=== PATIENT | male | born 1935 | race Caucasian/White ===

== ENCOUNTER 2017-03-15 07:29 | Observation (INO) | payer MEDICARE, MEDICAID ==
[2017-03-15 08:18] LABS: Troponin I 0.047 ng/mL (< 0.028)
--- NOTE | 2017-03-15 08:42 | RAD ---
PORTABLE CHEST: Date: 03/15/17 COMPARISON: Earlier exam from same date. HISTORY: Chest pain, elevated troponin. FINDINGS: Heart size is slightly enlarged with postop sternotomy change. Lungs are clear of infiltrates. No sig ns of failure. IMPRESSION: Borderline heart size. POS: [facility]
[2017-03-15 11:04] LABS: Anion Gap 11 mmol/L (10-20); BUN (Urea Nitrogen) 15 mg/dL (8.4-25.7); CK (CPK) 58 U/L (30-200); Calc. Creatinine Clearance 0 mL/min (70-130); Calcium 8.8 mg/dL (7.8-10.44); Carbon Dioxide 23 mmol/L (23-31); Chloride 99 mmol/L (98-107); Estimated GFR-MDRD 58; Glucose 132 mg/dL (83-110); Magnesium 1.7 mg/dL (1.6-2.6); Phosphorus 3.1 mg/dL (2.3-4.7); Potassium 3.7 mmol/L (3.5-5.1); Sodium 129 mmol/L (136-145)
[2017-03-15 11:08] LABS: CKMB 2.2 ng/mL (0-6.6)
[2017-03-15 11:24] LABS: Troponin I 0.026 ng/mL (< 0.028)
[2017-03-15 11:43] LABS: Folate (Folic Acid) 10.9 ng/mL (7.0-31.4)
[2017-03-15 14:12] VITALS: BMI 29.9
[2017-03-15] MEDS ORDERED: Nitroglycerin 0.4 MG TAB (25 Tab Bottle) SL PRN (14:31)
[2017-03-15] MEDS ORDERED: Mag-Al 1200 mg/1200 mg/30 ML UDCUP PO PRN (14:31)
[2017-03-15] MEDS ORDERED: Artificial Tears 18 DROP/0.9 ML EA EYE PRN (14:31)
[2017-03-15] MEDS ORDERED: Senokot 8.6 MG TAB PO PRN (14:31)
[2017-03-15] MEDS ORDERED: Acetaminophen 325 MG TAB PO PRN (14:31)
[2017-03-15] MEDS ORDERED: Sodium Chloride 0.65% Nasal 44 ML BOT EA NARE PRN (14:31)
[2017-03-15] MEDS ORDERED: Loratadine 10 MG TAB PO PRN (14:31)
[2017-03-15] MEDS ORDERED: Loperamide HCl 2 MG CAP PO PRN (14:31)
[2017-03-15] MEDS ORDERED: hydrALAZINE 20 MG/ML VIAL SLOW IVP PRN (14:31)
[2017-03-15] MEDS ORDERED: Eucerin (Mineral Oil/Petrolatum,White) 30 gm Jar TOP PRN (14:31)
[2017-03-15] MEDS ORDERED: Ondansetron ODT 4 MG TAB PO PRN (14:31)
[2017-03-15] MEDS ORDERED: Chloraseptic Spray 180 ml Bottle PO PRN (14:31)
[2017-03-15] MEDS ORDERED: Diabetic Tussin 200 MG/10 ML UDCUP PO PRN (14:31)
[2017-03-15] MEDS ORDERED: Milk Of Magnesia 30 ML UDCUP PO PRN (14:31)
[2017-03-15] MEDS ORDERED: Ondansetron HCl/PF 4 MG/2 ML Vial IVP PRN (14:31)
[2017-03-15] MEDS ORDERED: FLU VACC TS2017-18 (>65YR) 0.5 ML SYRINGE IM ONE (14:45)
[2017-03-15 15:02] LABS: INR-International Normal Ratio 1.9
--- NOTE | 2017-03-15 15:58 | HP ---
PRIMARY CARE PHYSICIAN: Mert Livingston M.D. REASON FOR ADMISSION: Transfer from [facility] for evaluation of the elevated troponin an d mechanical fall. HISTORY OF PRESENT ILLNESS: An 81-year-old male with a history of coronary artery disease, CABG, aor tic valve replacement on chronic anticoagulation therapy, who lives at [facility]. From there, he was taken to [facility], this patient is not able to provide any good history, but at [facility], the patient was fully evaluated and he had in determinate troponin and that is why the patient was sent to our emergency room for further evaluatio n. Patient had a mechanical fall from bed. Patient did not have any injury. He was feeling weak and na usea. At the halfway, he is using only wheelchair and he is able to go to bathroom with assista nce, but patient felt weak and that is why he was not able to go. Further details are not available. Patient did not have any injury associated with fall. REVIEW OF SYSTEMS: The following complete review of systems was negative, unless otherwise mentioned in the HPI or below: Constitutional: Weight loss or gain, ability to conduct usual activities. Sk in: Rash, itching. Eyes: Double vision, pain. ENT/Mouth: Nose bleeding, neck stiffness, pain, te nderness. Cardiovascular: Palpitations, dyspnea on exertion, orthopnea. Respiratory: Shortness of breath, wheezing, cough, hemoptysis, fever or night sweats. Gastrointestinal: Poor appetite, abdom inal pain, heartburn, nausea, vomiting, constipation, or diarrhea. Genitourinary: Urgency, frequency , dysuria, nocturia. Musculoskeletal: Pain, swelling. Neurologic/Psychiatric: Anxiety, depression . Allergy/Immunologic: Skin rash, bleeding tendency. Please see my HPI for pertinent positive and negative. All other review of systems reviewed and negative except as mentioned in the HPI. ALLERGIES: CODEINE, MORPHINE, PENICILLIN, TETANUS TOXOID. CURRENT HOME MEDICATIONS: Aspirin 81 mg p.o. daily, clonidine transdermal weekly, Keppra 500 mg twic e daily, pyridoxine 100 mg p.o. daily, losartan 100 mg twice daily, Coreg 3.125 mg twice daily, Floma x 0.4 mg daily, Cymbalta 30 mg daily, chlorthalidone 25 mg p.o. daily, Ranexa 1000 mg twice daily, Mi raLax 17 gram daily, Fosamax weekly, Coumadin 2.5 mg p.o. daily, Tylenol 650 mg q.6 hourly p.r.n., Ex dmitri patch daily. PAST MEDICAL HISTORY: History of myocardial infarction, coronary artery disease, history of prosthet ic valve replacement, chronic constipation, hypertension, osteoporosis, Alzheimer's dementia, epileps y, history of CVA, chronic diastolic heart failure, Paget's disease. PAST SURGICAL HISTORY: Appendicectomy, cholecystectomy. PAST PSYCHIATRIC HISTORY: Anxiety and depression. SOCIAL HISTORY: Patient lives at [facility] and [facility]. No history of tobacco, a lcohol or illicit drug abuse. He is mostly wheelchair bound, but able to ambulate short distances wi th assistance. FAMILY HISTORY: No strong family history of premature coronary artery disease, stroke or cancer. EMERGENCY ROOM COURSE: Patient is given nitro patch, aspirin at other emergency room. PHYSICAL EXAMINATION: VITAL SIGNS: On arrival to our emergency room, blood pressure 117/72, pulse 74, respiratory rate 18, temperature 98.4, saturation 93% on room air, weight 90.7 kilograms. GENERAL: Patient is currently alert, awake, follows commands. Demented pleasantly. No acute distre ss. HEAD: Normocephalic, atraumatic. No bruits noted on the scalp examination. EYES: Pupils round, reactive to light. Extraocular muscles intact. ENT: Oropharynx within normal limits. Moist mucous membranes. No oral lesions. No pharyngeal eryt tabby, exudate. NECK: Supple, no JVD, no thyromegaly, no carotid bruit, no jugular venous distention. LUNGS: Clear to auscultation without any rhonchi or rales. CARDIAC: S1, S2 regular prosthetic sounds heard. No murmur, no gallop, no rub. ABDOMEN: Soft, obesity present. Bowel sounds present. Nontender, nondistended. No organomegaly, n o mass, no suprapubic tenderness. BACK: Unremarkable, no CVA tenderness. EXTREMITIES: Upper extremity passive movement of all joints is normal. Lower extremities: No edema . Good peripheral pulsation. SKIN: No skin rash. HEMATOLOGICAL: No lymphadenopathy. PSYCHIATRIC: Normal affect. NEUROLOGIC: Patient is alert and awake, follows commands. Speech normal. Motor and sensation withi n normal limits. Reflexes symmetrical. Plantar bilateral flexor. No focal neurological deficit not ed. IMAGING: EKG based on my review reveals normal sinus rhythm, first degree AV block and nonspecific S T-T changes in lateral leads. Chest x-ray based on my review, no acute cardiopulmonary process. CT cervical spine negative for any fracture or dislocation. CT brain negative for any acute intracrania l process. SIGNIFICANT LABORATORY DATA: CBC: WBC 6.0, hemoglobin 12.6, platelets 139. INR 1.8. BMP: Sodium 129, potassium 3.7, chloride 99, carbon dioxide 23, BUN 15, creatinine 1.21, glucose 132, calcium 8.8 , phosphorus 3.1, magnesium 1.7, AST 13, ALT 9, alkaline phosphatase 96, albumin 3.6, CK-MB 2.1. CK 61, troponin I 0.032 and then 0.047 and then 0.026. BNP 143.2. Urinalysis: Leukocyte esterase trac e. B12 358. Folate 10.97. TSH 2.20. ASSESSMENT AND PLAN: 1. Mechanical fall. The patient's CT brain and CT cervical spine is negative. Clinical examination , patient does not have any bruits or any signs of injury. Etiology of mechanical fall is uncertain. 2. Elevated troponin. We will obtain echocardiography. The patient's two troponin is abnormal and third troponin came back negative, rule out acute coronary syndrome. We will obtain echocardiography . We will check lipid profile tomorrow morning for risk stratification. We will continue with aspir in 81 mg p.o. daily, Coreg 3.125 mg p.o. b.i.d., Ranexa 1000 mg twice daily, most likely elevated tro ponin related to demand ischemia. This patient does not complain of any chest pain. We will repeat cardiac enzyme again in the morning and then decide the next step. We will keep him n.p.o. after mid night; if needed, we will perform Cardiolite stress test for diagnostic reason. 3. History of mechanical valve replacement. We will obtain echocardiography to assess mechanical va lve. We will continue chronic anticoagulation with warfarin and will check PT/INR tomorrow. 4. Hypertension. We will continue clonidine patch weekly along with losartan 100 mg twice daily, Co reg 3.125 mg twice daily. 5. Hyponatremia, likely related with chlorthalidone, diuretic therapy. We will hold on that medicat ion. 6. Benign enlargement of prostate. We will continue Flomax 0.4 mg p.o. daily. 7. Alzheimer dementia. We will continue Exelon patch every day. 8. Seizure disorder. We will continue Keppra 500 mg twice daily. 9. Anxiety and depression. We will continue Cymbalta 30 mg p.o. daily. 10. Osteoporosis. The patient will resume Fosamax after discharge. 11. Asymptomatic urinary tract infection. We will start Macrobid 100 mg twice daily. 12. Chronic anticoagulation. Continue warfarin therapy and monitor PT and INR. 13. Deep venous thrombosis prophylaxis not needed because we are expecting discharge in 24 hours and patient is already on warfarin therapy. 14. Gastrointestinal prophylaxis. Pepcid 20 mg p.o. b.i.d. 15. Code status: The patient has out of hospital DO NOT RESUSCITATE as well as patient is DO NOT RE SUSCITATE; that is confirmed. 16. Generalized weakness. The patient will need physical therapy and occupational therapy while in hospital, but patient is mostly wheelchair bound. Disposition plan based on clinical course likely within 24 hours. Plan of care discussed with the anna jj in detail.
[2017-03-15] MEDS: Warfarin Sodium 2.5 MG TAB PO SCH (16:12)
[2017-03-15] MEDS: Carvedilol 3.125 MG TAB PO SCH (16:12)
[2017-03-15 19:02] LABS: Hemoglobin 12.9 g/dL (14.0-18.0); Platelet Count 171 thou/uL (130-400)
[2017-03-15 19:07] LABS: INR-International Normal Ratio 1.8; Prothrombin Time 21.2 SEC (12.0-14.7)
[2017-03-15] MEDS: Famotidine 20 MG TAB PO SCH (20:41)
[2017-03-15] MEDS: levETIRAcetam 500 MG TAB PO SCH (20:41)
[2017-03-15] MEDS: Nitrofurantoin Monohyd/M-Cryst 100 MG CAP PO SCH (20:41)
[2017-03-16 06:07] LABS: Prothrombin Time 23.3 SEC (12.0-14.7)
[2017-03-16 06:11] LABS: Anion Gap 9 mmol/L (10-20); BUN (Urea Nitrogen) 14 mg/dL (8.4-25.7); Calc. Creatinine Clearance 62 mL/min (70-130); Calcium 8.7 mg/dL (7.8-10.44); Carbon Dioxide 28 mmol/L (23-31); Cardiac Risk 4.1 (Less than 4.5); Chloride 95 mmol/L (98-107); Cholesterol 176 mg/dl (< 200 Desired); Estimated GFR-MDRD 62; Glucose 101 mg/dL (83-110); HDL Cholesterol 43 mg/dL (>60 Neg Risk); LDL Cholesterol, Calculated 114 mg/dL; Potassium 3.2 mmol/L (3.5-5.1); Sodium 129 mmol/L (136-145); Triglycerides 94 mg/dL (Less than 150)
[2017-03-16 06:12] LABS: CKMB 2.7 ng/mL (0-6.6); Troponin I 0.032 ng/mL (< 0.028)
[2017-03-16 08:01] LABS: #Basophils 0.1 thou/uL (0.0-0.2); #Eosinphils 0.1 thou/uL (0.0-0.7); #Lymphocytes 1.5 thou/uL (1.20-3.40); #Neutrophils 4.5 thou/uL (1.40-6.50); %Basophils 0.8 % (0.0-1.0); %Eosinophils 0.9 % (0.0-10.0); %Lymphocytes 20.9 % (21.0-51.0); %Monocytes 14.2 % (0.0-10.0); %Neutrophils 63.1 % (42.0-75.0); Hemoglobin 12.1 g/dL (14.0-18.0); MDiff Complete? YES; Mean Corpuscular HGB CONC 34.2 g/dL (32.0-36.0); Mean Corpuscular Hemoglobin 27.1 pg (27.0-31.0); Mean Corpuscular Volume 79.3 fl (80.0-94.0); Mean Platelet Volume 6.7 fL (7.4-10.4); Ovalocytes SLIGHT = 2-5 cells (100X) (0-1/hpf); Platelet Count 148 thou/uL (130-400); Red Blood Cell (RBC) Count 4.47 mill/uL (4.70-6.10); Schistocytes SLIGHT = 2-5 cells (100X) (0-1/hpf); White Blood Cell (WBC) Count 7.1 thou/uL (4.8-10.8)
[2017-03-16] MEDS: Carvedilol 3.125 MG TAB PO SCH ×2 (08:25→16:43)
[2017-03-16] MEDS: DULoxetine 30 MG CAP PO SCH (09:26)
[2017-03-16] MEDS: Losartan 25 MG TAB PO SCH (09:26)
[2017-03-16] MEDS: Famotidine 20 MG TAB PO SCH ×2 (09:26→22:12)
[2017-03-16] MEDS: Tamsulosin HCl 0.4 MG CAP PO SCH (09:26)
[2017-03-16] MEDS: Nitrofurantoin Monohyd/M-Cryst 100 MG CAP PO SCH ×2 (09:27→22:12)
[2017-03-16] MEDS: pyridOXINE 50 MG (B6) TAB PO SCH (09:27)
[2017-03-16] MEDS: Rivastigmine 9.5mg/24 Hour PATCH TD SCH (09:27)
[2017-03-16] MEDS: levETIRAcetam 500 MG TAB PO SCH ×2 (09:27→22:12)
[2017-03-16] MEDS: Polyethylene Glycol 3350 17 GM Packet PO SCH ×2 (09:28→09:33)
--- NOTE | 2017-03-16 11:02 | PDOC.PN ---
- Subjective Encounter Start Date: 03/16/17 Encounter Start Time: 07:15 Patient seen and examined. No new complaints. No overnight events - Objective Resuscitation Status: Resuscitation Status DNR:Do Not Resuscitate MAR Reviewed: Yes Vital Signs & Weight: Vital Signs (12 hours) Temp Pulse Resp BP BP Pulse Ox 03/16/17 08:25 97.6 F 64 18 147/71 H 96 03/16/17 04:00 98.3 F 64 20 152/65 H 92 L 03/16/17 00:00 98.4 F 60 20 153/70 H 96 Weight Weight 185 lb 8 oz I&O: 03/15/17 03/16/17 03/17/17 06:59 06:59 06:59 Intake Total 1080 Output Total 1000 Balance 80 Result Diagrams: 03/16/17 05:17 03/16/17 05:17 Phys Exam - Physical Examination Constitutional: NAD HEENT: PERRLA, moist MMs, sclera anicteric Neck: no JVD, supple Respiratory: no wheezing, no rales, no rhonchi Cardiovascular: RRR, no significant murmur, no rub Gastrointestinal: soft, non-tender, no distention, positive bowel sounds Musculoskeletal: no edema, pulses present Neurological: non-focal Psychiatric: normal affect Skin: no rash, normal turgor Dx/Plan (1) Elevated troponin Code(s): R74.8 - ABNORMAL LEVELS OF OTHER SERUM ENZYMES Status: Acute (2) Fall at intermediate Code(s): W19.XXXA - UNSPECIFIED FALL, INITIAL ENCOUNTER; Y92.129 - UNSP PLACE IN LONGTERM PLACE Status: Acute (3) Hyponatremia Code(s): E87.1 - HYPO-OSMOLALITY AND HYPONATREMIA Status: Acute (4) UTI (urinary tract infection) Status: Acute (5) Weakness generalized Code(s): R53.1 - WEAKNESS Status: Acute (6) Alzheimer's dementia Code(s): G30.9 - ALZHEIMER'S DISEASE, UNSPECIFIED Status: Chronic (7) BPH (benign prostatic hyperplasia) Code(s): N40.0 - BENIGN PROSTATIC HYPERPLASIA WITHOUT LOWER URINRY TRACT SYMP Status: Chronic (8) Chronic anticoagulation Code(s): Z79.01 - HOME HEALTH TRAVEL PT (CURRENT) USE OF ANTICOAGULANTS Status: Chronic (9) H/O mechanical aortic valve replacement Code(s): Z95.2 - PRESENCE OF PROSTHETIC HEART VALVE Status: Chronic (10) Hypertension Code(s): I10 - ESSENTIAL (PRIMARY) HYPERTENSION Status: Chronic (11) Osteoporosis Code(s): M81.0 - AGE-RELATED OSTEOPOROSIS W/O CURRENT PATHOLOGICAL FRACTURE Status: Chronic (12) Seizure disorder Code(s): G40.909 - EPILEPSY, UNSP, NOT INTRACTABLE, WITHOUT STATUS EPILEPTICUS Status: Chronic - Plan cont current plan of care * medication reviewed as below * symptomatic treatment * see discharge summery * echo pending. Review of Systems - Review of Systems ENT: negative: Ear Pain, Ear Discharge, Nose Pain, Nose Discharge, Nose Congestion, Mouth Pain, Mouth Swelling, Throat Pain, Throat Swelling, Other Respiratory: negative: Cough, Dry, Shortness of Breath, Hemoptysis, SOB with Excertion, Pleuritic Pain, Sputum, Wheezing Cardiovascular: negative: chest pain, palpitations, orthopnea, paroxysmal nocturnal dyspnea, edema, light headedness, other Gastrointestinal: negative: Nausea, Vomiting, Abdominal Pain, Diarrhea, Constipation, Melena, Hematochezia, Other Genitourinary: negative: Dysuria, Frequency, Incontinence, Hematuria, Retention , Other Musculoskeletal: negative: Neck Pain, Shoulder Pain, Arm Pain, Back Pain, Hand Pain, Leg Pain, Foot Pain, Other Skin: negative: Rash, Lesions, Prince, Bruising, Other - Medications/Allergies Allergies/Adverse Reactions: Allergies Allergy/AdvReac Type Severity Reaction Status Date / Time codeine Allergy Verified 03/15/17 13:56 morphine Allergy Verified 03/15/17 13:56 Penicillins Allergy Verified 03/15/17 13:57 Tetanus Vaccines and Toxoid Allergy Verified 03/15/17 13:57 Medications: Current Medications Acetaminophen (Tylenol) 650 mg PO Q4H PRN PRN Reason: Headache/Fever or Pain Al Hydroxide/Mg Hydroxide (Maalox) 30 ml PO Q6H PRN PRN Reason: Heartburn or Indigestion Artificial Tears (Tears Naturale) 0 drop EA EYE PRN PRN PRN Reason: Dry Eyes Aspirin (Aspirin Chewable) 81 mg PO DAILY [facility] Last Admin: 03/16/17 09:26 Dose: 81 mg Carvedilol (Coreg) 3.125 mg PO BID-[facility] Last Admin: 03/16/17 08:25 Dose: 3.125 mg Duloxetine HCl (Cymbalta) 30 mg PO DAILY [facility] Last Admin: 03/16/17 09:26 Dose: 30 mg Famotidine (Pepcid) 20 mg PO BID [facility] Last Admin: 03/16/17 09:26 Dose: 20 mg Guaifenesin (Robitussin Sf) 200 mg PO Q4H PRN PRN Reason: Cough Hydralazine HCl (Apresoline) 10 mg SLOW IVP Q4H PRN PRN Reason: Systolic BP > 180 Levetiracetam (Keppra) 500 mg PO BID [facility] Last Admin: 03/16/17 09:27 Dose: 500 mg Loperamide HCl (Imodium) 2 mg PO PRN PRN PRN Reason: Diarrhea/Loose Stools Loratadine (Claritin) 10 mg PO DAILYPRN PRN PRN Reason: Sinus Symptoms Losartan Potassium (Cozaar) 100 mg PO DAILY [facility] Last Admin: 03/16/17 09:26 Dose: 100 mg Magnesium Hydroxide (Milk Of Magnesium) 30 ml PO DAILYPRN PRN PRN Reason: Constipation Mineral Oil/White Petrolatum (Eucerin Cream) 0 gm TOP BIDPRN PRN PRN Reason: Dry Skin Nitrofurantoin Macrocrystals (Macrobid) 100 mg PO BID [facility] Last Admin: 03/16/17 09:27 Dose: 100 mg Nitroglycerin (Nitrostat) 0.4 mg SL Q5MIN PRN PRN Reason: Chest Pain Ondansetron HCl (Zofran Odt) 4 mg PO Q6H PRN PRN Reason: Nausea/Vomiting Ondansetron HCl (Zofran) 4 mg IVP Q6H PRN PRN Reason: Nausea/Vomiting Phenol (Chloraseptic [place] 180 Ml Bot) 0 ml PO PRN PRN PRN Reason: Sore Throat Polyethylene Glycol (Miralax) 17 gm PO DAILY [facility] Last Admin: 03/16/17 09:33 Dose: Not Given Pyridoxine HCl (Vitamin B 6) 100 mg PO DAILY [facility] Last Admin: 03/16/17 09:27 Dose: 100 mg Ranolazine (Ranexa) 1,000 mg PO BID [facility] Last Admin: 03/16/17 09:27 Dose: 1,000 mg Rivastigmine (Exelon Patch) 9.5 mg TD DAILY [facility] Last Admin: 03/16/17 09:27 Dose: 9.5 mg Senna (Senokot) 2 tab PO HSPRN PRN PRN Reason: Constipation Sodium Chloride ([place] Nasal [place] 0.65%) 0 ml EA NARE QIDPRN PRN PRN Reason: Nasal Congestion Tamsulosin HCl (Flomax) 0.4 mg PO DAILY [facility] Last Admin: 03/16/17 09:26 Dose: 0.4 mg Warfarin Sodium (Coumadin) 2.5 mg PO 1700 [facility] Last Admin: 03/15/17 16:12 Dose: 2.5 mg
--- NOTE | 2017-03-16 11:47 | DIS ---
DATE OF ADMISSION: 03/15/2017 DATE OF DISCHARGE: 03/16/2017 PRIMARY CARE PHYSICIAN: Dr. Mert Livingston. DISCHARGE DISPOSITION: [facility]. PRIMARY DISCHARGE DIAGNOSES: 1. Fall at [facility]. 2. Elevated troponin, ruled out acute coronary syndrome. 3. Hyponatremia due to chlorthalidone. SECONDARY DISCHARGE DIAGNOSES: 1. History of mechanical aortic valve replacement. 2. Hypertension. 3. Benign enlargement of prostate. 4. Alzheimer's dementia. 5. Seizure disorder. 6. Osteoporosis. 7. Anxiety and depression. 8. Chronic anticoagulation. PRIMARY PROCEDURE/OPERATION: None. RADIOLOGICAL INVESTIGATION: Chest x-ray was normal. SIGNIFICANT LABORATORY DATA: WBC 7.1, hemoglobin 12.1, platelets 148, INR 2.0. Sodium 129, potassiu m 3.2, BUN 14, creatinine 1.13, calcium 8.7, LDL 114, CK-MB 2.2, troponin I 0.032. TSH 2.20. B12 35 8. Folate 10.9. DISCHARGE MEDICATIONS: Tylenol 650 mg p.o. q.6 hours p.r.n., Fosamax 10 mg p.o. daily, aspirin 81 mg p.o. daily, Coreg 3.125 mg p.o. b.i.d., chlorthalidone 25 mg p.o. daily, clonidine 0.1 mg p.o. b.i.d . p.r.n., Cymbalta 30 mg p.o. daily, Keppra 500 mg p.o. b.i.d., losartan 100 mg p.o. daily, MiraLax 1 7 grams p.o. daily p.r.n., pyridoxine 100 mg p.o. daily, Ranexa 1000 mg p.o. b.i.d., Exelon patch 9.5 mg topical daily, Flomax 0.4 mg p.o. daily, warfarin 2.5 mg p.o. daily. CONTRAINDICATIONS: None. CODE STATUS: DNR. INPATIENT CONSULTANTS: None. ALLERGIES: CODEINE, MORPHINE, PENICILLIN, TETANUS TOXOID. DISCHARGE PLAN: Post hospital, the patient will follow up with primary care physician. HOSPITAL COURSE: An 81-year-old male with above mentioned medical problems who was evaluated at the [facility]. Patient had a mechanical fall at [facility]. Subsequently, patient was cristino fordated at the [facility], his CT cervical spine and CT brain was negative. The patient dominguez d elevated troponin and that is why we observed him in the telemetry floor, patient did not have any chest pain. We continued his home medication while in hospital. The patient was having asymptomatic urinary tract infection and that is why he was given Macrobid while in hospital. The patient is als o given Macrobid for 5 days at [facility]. His sodium was low, which is related with diuretic ther apy. At this point, we are trying to obtain echocardiography. After echocardiography, this patient is medically stable for discharge. The patient is seen and examined at bedside today. Please see my progress note from today for furthe r details. Paper work for discharge done. Discharge medication reconciliation done.
[2017-03-16] MEDS: Warfarin Sodium 2.5 MG TAB PO SCH (16:44)
[2017-03-16 17:48] LABS: Prothrombin Time 23.6 SEC (12.0-14.7)
[2017-03-17 07:41] VITALS: BP 152/72; TEMP 98.1
[2017-03-17] MEDS: Famotidine 20 MG TAB PO SCH (09:12)
[2017-03-17] MEDS: Losartan 25 MG TAB PO SCH (09:12)
[2017-03-17] MEDS: DULoxetine 30 MG CAP PO SCH (09:13)
[2017-03-17] MEDS: pyridOXINE 50 MG (B6) TAB PO SCH (09:13)
[2017-03-17] MEDS: Nitrofurantoin Monohyd/M-Cryst 100 MG CAP PO SCH (09:13)
[2017-03-17] MEDS: Carvedilol 3.125 MG TAB PO SCH (09:13)
[2017-03-17] MEDS: levETIRAcetam 500 MG TAB PO SCH (09:13)
[2017-03-17] MEDS: Polyethylene Glycol 3350 17 GM Packet PO SCH (09:14)
[2017-03-17] MEDS: Tamsulosin HCl 0.4 MG CAP PO SCH (09:14)
[2017-03-17] MEDS: Rivastigmine 9.5mg/24 Hour PATCH TD SCH (09:14)
--- NOTE | 2017-03-17 10:47 | PDOC.PN ---
- Subjective Encounter Start Date: 03/17/17 Encounter Start Time: 07:00 Patient seen and examined. No new complaints. No overnight events - Objective Resuscitation Status: Resuscitation Status DNR:Do Not Resuscitate MAR Reviewed: Yes Vital Signs & Weight: Vital Signs (12 hours) Temp Pulse Resp BP BP Pulse Ox 03/17/17 07:45 98.1 F 69 17 03/17/17 07:40 98.1 F 69 17 152/72 H 98 03/17/17 04:00 97.9 F 64 18 117/60 96 Weight Weight 185 lb 8 oz I&O: 03/16/17 03/17/17 03/18/17 06:59 06:59 06:59 Intake Total 1080 1495 Output Total 1000 380 Balance 80 1115 Result Diagrams: 03/16/17 05:17 03/16/17 05:17 Radiology Reviewed by me: Yes (echo report) EKG Reviewed by me: Yes (nsr) Phys Exam - Physical Examination Constitutional: NAD HEENT: PERRLA, moist MMs, sclera anicteric Neck: no JVD, supple Respiratory: no wheezing, no rales, no rhonchi Cardiovascular: RRR, no significant murmur, no rub Gastrointestinal: soft, non-tender, no distention, positive bowel sounds Musculoskeletal: no edema, pulses present Neurological: non-focal Lymphatic: no nodes Psychiatric: normal affect Skin: no rash, normal turgor Dx/Plan (1) Elevated troponin Code(s): R74.8 - ABNORMAL LEVELS OF OTHER SERUM ENZYMES Status: Acute (2) [facility] Code(s): W19.XXXA - UNSPECIFIED FALL, INITIAL ENCOUNTER; Y92.129 - UNSP PLACE IN SKILLED NURSING PLACE Status: Acute (3) Hyponatremia Code(s): E87.1 - HYPO-OSMOLALITY AND HYPONATREMIA Status: Acute (4) UTI (urinary tract infection) Status: Acute (5) Weakness generalized Code(s): R53.1 - WEAKNESS Status: Acute (6) Alzheimer's dementia Code(s): G30.9 - ALZHEIMER'S DISEASE, UNSPECIFIED Status: Chronic (7) BPH (benign prostatic hyperplasia) Code(s): N40.0 - BENIGN PROSTATIC HYPERPLASIA WITHOUT LOWER URINRY TRACT SYMP Status: Chronic (8) Chronic anticoagulation Code(s): Z79.01 - CUSTODIAL (CURRENT) USE OF ANTICOAGULANTS Status: Chronic (9) H/O mechanical aortic valve replacement Code(s): Z95.2 - PRESENCE OF PROSTHETIC HEART VALVE Status: Chronic (10) Hypertension Code(s): I10 - ESSENTIAL (PRIMARY) HYPERTENSION Status: Chronic (11) Osteoporosis Code(s): M81.0 - AGE-RELATED OSTEOPOROSIS W/O CURRENT PATHOLOGICAL FRACTURE Status: Chronic (12) Seizure disorder Code(s): G40.909 - EPILEPSY, UNSP, NOT INTRACTABLE, WITHOUT STATUS EPILEPTICUS Status: Chronic - Plan cont current plan of care, continue antibiotics * see discharge summery * medically stable * medication reviewed as below * symptomatic treatment. Review of Systems - Review of Systems ENT: negative: Ear Pain, Ear Discharge, Nose Pain, Nose Discharge, Nose Congestion, Mouth Pain, Mouth Swelling, Throat Pain, Throat Swelling, Other Respiratory: negative: Cough, Dry, Shortness of Breath, Hemoptysis, SOB with Excertion, Pleuritic Pain, Sputum, Wheezing Cardiovascular: negative: chest pain, palpitations, orthopnea, paroxysmal nocturnal dyspnea, edema, light headedness, other Gastrointestinal: negative: Nausea, Vomiting, Abdominal Pain, Diarrhea, Constipation, Melena, Hematochezia, Other Genitourinary: negative: Dysuria, Frequency, Incontinence, Hematuria, Retention , Other Musculoskeletal: negative: Neck Pain, Shoulder Pain, Arm Pain, Back Pain, Hand Pain, Leg Pain, Foot Pain, Other Skin: negative: Rash, Lesions, Prince, Bruising, Other - Medications/Allergies Allergies/Adverse Reactions: Allergies Allergy/AdvReac Type Severity Reaction Status Date / Time codeine Allergy Verified 03/15/17 13:56 morphine Allergy Verified 03/15/17 13:56 Penicillins Allergy Verified 03/15/17 13:57 Tetanus Vaccines and Toxoid Allergy Verified 03/15/17 13:57
--- NOTE | 2017-03-17 12:50 | ADD-DIS ---
Please see my discharge summary dictated yesterday. This patient stayed late in hospital because ech ocardiography was not done. Finally, echo was done, but it was too late, so he did not go to shelter home. Echo report showing EF 50%-55%, prosthetic mechanical aortic valve, diastolic dysfunc tion. This patient is seen and examined at bedside today. Please see my progress note from today for furth er details. There is no change in his discharge summary other than echocardiography reported is sebastián bunch today.
== END 2017-03-17 10:20 | disposition home or self-care (01) ==
LOC: ERS 07:29 → 2NO 09:10 → ERS 13:32
PROVIDERS: ADMIT Internal Medicine; ATTEND Internal Medicine
DX: R79.89 Other specified abnormal findings of blood chemistry (principal); R53.1 Weakness; I25.10 Atherosclerotic heart disease of native coronary artery without angina pectoris; I25.2 Old myocardial infarction; M81.0 Age-related osteoporosis without current pathological fracture; G30.9 Alzheimer's disease, unspecified; G40.909 Epilepsy, unspecified, not intractable, without status epilepticus; I11.0 Hypertensive heart disease with heart failure; I50.32 Chronic diastolic (congestive) heart failure; M88.9 Osteitis deformans of unspecified bone; F41.9 Anxiety disorder, unspecified; F02.80 Dementia in other diseases classified elsewhere, unspecified severity, without behavioral disturbance, psychotic disturbance, mood disturbance, and anxiety; F32.9 Major depressive disorder, single episode, unspecified; E87.1 Hypo-osmolality and hyponatremia; N40.0 Benign prostatic hyperplasia without lower urinary tract symptoms; Z88.5 Allergy status to narcotic agent; Z88.0 Allergy status to penicillin; Z88.7 Allergy status to serum and vaccine; Z79.01 Long term (current) use of anticoagulants; Z79.82 Long term (current) use of aspirin; Z79.899 Other long term (current) drug therapy; Z90.49 Acquired absence of other specified parts of digestive tract; Z95.1 Presence of aortocoronary bypass graft; Z95.2 Presence of prosthetic heart valve; Z91.81 History of falling; Z98.890 Other specified postprocedural states; Z86.73 Personal history of transient ischemic attack (TIA), and cerebral infarction without residual deficits
CPT/HCPCS: 71010; 80048 ×2; 80061; 82550; 82553 ×2; 82607; 82746; 83735; 83930; 84100; 84443; 84484 ×2; 85014; 85018; 85025; 85049; 85610 ×2; 93005; 93306; 97116; 97139; 99285; G0008; G0378; G8978; G8979; G8987; G8988; Q2036; 36415; 90471; 90682

== ENCOUNTER 2017-12-25 10:47 | Inpatient (IN) | payer MEDICARE, MEDICAID ==
[2017-12-25] MEDS ORDERED: Atropine Sulfate 1 mg/10 ml Syringe ONE (11:38)
[2017-12-25 11:57] LABS: #Basophils 0.1 thou/uL (0.0-0.2); #Lymphocytes 1.9 thou/uL (1.20-3.40); #Neutrophils 4.4 thou/uL (1.40-6.50); %Basophils 0.8 % (0.0-1.0); %Eosinophils 0.7 % (0.0-10.0); %Lymphocytes 25.7 % (21.0-51.0); %Monocytes 13.9 % (0.0-10.0); %Neutrophils 58.9 % (42.0-75.0); Hemoglobin 10.9 g/dL (14.0-18.0); Mean Corpuscular HGB CONC 34.2 g/dL (32.0-36.0); Mean Corpuscular Hemoglobin 27.3 pg (27.0-31.0); Mean Corpuscular Volume 79.7 fL (78.0-98.0); Mean Platelet Volume 10.8 fL (7.4-10.4); Platelet Count 144 thou/uL (130-400); RBC Distribution Width 16.2 % (11.5-14.5); White Blood Cell (WBC) Count 7.5 thou/uL (4.8-10.8)
[2017-12-25] MEDS ORDERED: Sodium Chloride 0.9% 1,000 ML IV SCH (12:00)
[2017-12-25] MEDS ORDERED: Ondansetron HCl/PF 4 MG/2 ML Vial IVP PRN (12:00)
[2017-12-25] MEDS ORDERED: Acetaminophen 325 MG TAB PO PRN (12:00)
[2017-12-25] MEDS ORDERED: Ondansetron ODT 4 MG TAB SL PRN (12:00)
[2017-12-25] MEDS ORDERED: Atropine Sulfate 1 mg/10 ml Syringe IVP PRN (12:00)
[2017-12-25 12:03] LABS: INR-International Normal Ratio 1.3; Prothrombin Time 16.7 SEC (12.0-14.7)
[2017-12-25 12:20] LABS: ALT (SGPT) 10 U/L (8-55); AST (SGOT) 15 U/L (5-34); Albumin 3.6 g/dL (3.4-4.8); Alkaline Phosphatase 70 U/L (40-150); Anion Gap 12 mmol/L (10-20); BUN (Urea Nitrogen) 17 mg/dL (8.4-25.7); Calc. Creatinine Clearance 0 mL/min (70-130); Calcium 8.6 mg/dL (7.8-10.44); Carbon Dioxide 23 mmol/L (23-31); Chloride 102 mmol/L (98-107); Estimated GFR-MDRD 45; Globulin 2.3 g/dL (2.4-3.5); Glucose 115 mg/dL (83-110); Magnesium 1.7 mg/dL (1.6-2.6); Phosphorus 3.2 mg/dL (2.3-4.7); Potassium 3.9 mmol/L (3.5-5.1); Protein, Total 5.9 g/dL (5.8-8.1); Sodium 133 mmol/L (136-145)
[2017-12-25 12:24] LABS: CKMB 2.7 ng/mL (0-6.6); Troponin I Less than 0.010 ng/mL (< 0.028)
[2017-12-25 12:34] LABS: Actual Bicarbonate (HCO3a) 22.1 mEq/L (22-28); Analyzer IN Cardio ER; Base Excess (BEa) -2.6 mEq/L (-2.0 to +3.0); CO2 Tension 37.9 mmHg (35.0-45.0); Calcium, Ionized 1.11 mmol/L (1.12-1.30); Carboxyhemoglobin (COHb) 0.1 gm% (0.0-3.0); Hemoglobin (Hb) 11.8 g/dL (14.0-18.0); Potassium - ABG Lab 4.12 mmol/L (3.70-5.30); Puncture Site RRA; pH, Arterial 7.38 (7.35-7.45)
--- NOTE | 2017-12-25 12:34 | CT ---
CT BRAIN WITHOUT CONTRAST: History: Altered mental status. FINDINGS: Comparison made with exam of 03-15-17, 04-11-16. Changes of cortical atrophy and chronic small vessel ischemic disease is again seen. The ventricular size is stable and the basilar cisterns are patent. No evidence of acute infarct, hemorrhage, midline shift, or abnormal extraaxial fluid collections are seen. The bony calvarium is intact. ====== izaguirre es in the skull are again seen. The visualized paranasal sinuses and mastoid air cells are well aerat ed. IMPRESSION: Stable exam. No CT evidence of acute intracranial process. POS: [facility]
[2017-12-25 12:35] LABS: ALV-art Gradient 16.355 (0-20)
[2017-12-25 12:37] LABS: Free T4 (Free Thyroxine) 0.94 ng/dL (0.70-1.48); Thyroid Stimulating Hormone 5.6308 uIU/mL (0.35-4.94)
--- NOTE | 2017-12-25 12:45 | RAD ---
CHEST ONE VIEW: History: Bradycardia. Comparison: 03-15-17 FINDINGS: Exam is limited due to patient rotation. There is pulmonary venous congestion and cardiomegaly. No pn eumothorax or large effusion. Prosthetic valve replacement is seen. IMPRESSION: Cardiomegaly and mild pulmonary venous congestion. POS: [facility]
[2017-12-25] MEDS ORDERED: DOBUTamine 500 mg/250 ml 250 ML IVPB SCH (16:30)
[2017-12-25 16:32] VITALS: BMI 28.4
--- NOTE | 2017-12-25 17:04 | CON ---
DATE OF CONSULTATION: 12/25/2017 REASON FOR CONSULTATION: Bradycardia. HISTORY OF PRESENT ILLNESS: Mr. Garcia is an 82-year-old gentleman with a history of CAD status po st bypass surgery. He was last seen in the office in 2017. He recently presented with mental status changes, fatigue and weakness. He was found to be bradycardic. He has been on carvedilol in the [facility]. Heart was in the 30s. He was given atropine x2. Upon my arrival, his heart rate was in the 60s . Also, during his ER visit, he fell to the floor and was placed in a C-collar while in the emergenc y room. Imaging is currently pending. He does have underlying dementia, so history is very difficul t to obtain. PAST MEDICAL HISTORY: Previous NC, CAD status post bypass surgery, valve replacement, appendectomy, cholecystectomy, dementia, and hypertension. ALLERGIES: TETANUS, MORPHINE, PENICILLIN. SOCIAL HISTORY: No alcohol or tobacco use. CURRENT HOME MEDICATIONS: 1. Ranexa. 2. Losartan. 3. Exelon. 4. Cymbalta. 5. Coumadin. 6. Coreg. 7. Aspirin. 8. Clonidine. 9. Tamsulosin. 10. Lisinopril. 11. Keppra. 12. Flonase. REVIEW OF SYSTEMS: Unobtainable. PHYSICAL EXAMINATION: VITAL SIGNS: Blood pressure 128/63, pulse 81, temperature afebrile. GENERAL: He is not oriented to time, person, or place. The patient appears his stated age. NEUROLOGIC: The patient is alert and oriented times 3 with no focal neurologic deficits. HEENT: Sclerae without icterus. Mouth has moist mucous membranes with normal pallor. NECK: No JVD. Carotid upstroke brisk. No bruits bilaterally. LUNGS: Clear to auscultation with unlabored respirations. BACK: No scoliosis or kyphosis. CARDIAC: Regular rate and rhythm with normal S1 and S2. No S3 or S4 noted. No significant rubs, murmurs, thrills, or gallops noted throughout the precordium. PMI is not displaced. There is no parasternal heave. ABDOMEN: Soft, nontender, nondistended. No peritoneal signs present. No hepatosplenomegaly. No abnormal striae. EXTREMITIES: 2+ femoral and 2+ dorsalis pedis pulses. No cyanosis, clubbing, or edema. SKIN: No gross abnormalities. PERTINENT LABORATORY DATA: Hemoglobin 10.9, creatinine 1.5. BNP of 458. Troponin negative. TSH 5. 6. Recent echo data in the office of 2017: LVEF 55%-60%, mild MR with mechanical aortic valve. IMPRESSION: 1. Symptomatic bradycardia. 2. Coronary artery disease, status post bypass surgery. 3. Mechanical aortic valve. 4. Dementia. RECOMMENDATIONS: Mr. Garcia's blood pressure and heart rate appears stable. We will add low dose Dobutrex at 5 mcg per kilo per minute overnight. We will reassess in a.m. and try and wean off his D obutrex. This is likely related to beta temo therapy. We will otherwise continue outpatient medi cation prescribed. We will also recommend echo and Doppler.
--- NOTE | 2017-12-25 17:10 | PDOC.FPRHP ---
- History of Present Illness Chief Complaint: AMS History of Present Illness: 82 yo M presents from [facility] in [place] after being found altered this am. Per EMS/NH staff, pt was at baseline functional status this am, however shortly after taking his meds he because altered and difficult to arouse. EMS was called and pt was found to have a HR in the 30s. He was given 1 mg of atropine and HR recovered to the 50s. By the time he reached the ED his HR was again in the 30s and he was hypotensive. He was again given 1 mg of atropine and again his HR recovered to the 50s-60s and BP recovered. After the second dose, pt remained stable. Per EMS there was some concern from the NH that the patient may have received multiple doses of his coreg. At the time of the H&P no witnesses to the event were available and pt would only respond to yes or no questions. - Allergies/Adverse Reactions Allergies Allergy/AdvReac Type Severity Reaction Status Date / Time codeine Allergy Verified 03/15/17 13:56 morphine Allergy Verified 03/15/17 13:56 Penicillins Allergy Verified 03/15/17 13:57 Tetanus Vaccines and Toxoid Allergy Verified 03/15/17 13:57 - Home Medications Medication Instructions Recorded Confirmed Type Acetaminophen [Tylenol Regular 650 mg PO Q6HR PRN 03/15/17 12/25/17 History Strength] Alendronate Sodium 10 mg PO DAILY-AC 03/15/17 12/25/17 History Aspirin [Aspirin Chewable Tablet] 81 mg PO DAILY 03/15/17 12/26/17 History Carvedilol [Coreg] 3.125 mg PO BID 03/15/17 12/25/17 History Chlorthalidone 25 mg PO DAILY 03/15/17 12/25/17 History DULoxetine [Cymbalta] 30 mg PO DAILY 03/15/17 12/26/17 History Losartan Potassium 100 mg PO DAILY 03/15/17 12/25/17 History Polyethylene Glycol 3350 [Miralax] 17 gm PO PRN PRN 03/15/17 12/25/17 History Pyridoxine HCl (Vitamin B6) 100 mg PO DAILY 03/15/17 12/25/17 History [Pyridoxine HCl] Ranolazine [Ranexa] 1,000 mg PO BID 03/15/17 12/25/17 History Rivastigmine Patch [Exelon Patch] 9.5 mg TOP DAILY 03/15/17 12/25/17 History Tamsulosin HCl [Flomax] 0.4 mg PO DAILY 03/15/17 12/25/17 History Warfarin Sodium [Coumadin] 2.5 mg PO DAILY 03/15/17 12/25/17 History cloNIDine HCl 0.1 mg PO BID PRN 03/15/17 12/25/17 History levETIRAcetam [Keppra] 500 mg PO BID 03/15/17 12/25/17 History - History PMHx: HTN MDD Osteoporosis BPH Seizure disorder NOS CAD Hx of CVA Hx of [place] PSHx: Appendectomy Cholecystectomy Aortic valve replacement FHx: Unk Social: No tobacco, etoh, recreational drugs - Review of Systems ROS unobtainable: due to mental status - Vital signs BP: 100/60 HR: 38 RR: 11 Tmax: 97.0 Pox: 97% on 3L Wt: 95 kg - Physical Exam -Constitutional: Pt is difficult to arouse. He will attempt to answer questions, however his answers are unintelligible HEENT: normocephalic and atraumatic -HEENT: Pupils equal, however sluggish to react Neck: trachea midline Chest: no lesions -Heart: Bradycardic, 2/6 systolic murmur Lungs: CTAB, no respiratory distress Abdomen: soft, non-tender, bowel sounds present Musculoskeletal: normal structure -Neurological: No facial droop, strength in UE/LE equal and WNL. No tongue deviation. Otherwise , unable to evaluate Skin: no rash/lesions, good turgor Heme/Lymphatic: no unusual bruising or bleeding -Psychiatric: Unable to evaluate FMR H&P: Results - Labs Result Diagrams: 12/26/17 03:32 12/26/17 03:32 Lab results: WBC 7.5 thou/uL (4.8-10.8) 12/25/17 11:45 Hgb 10.9 g/dL (14.0-18.0) L 12/25/17 11:45 Hct 31.8 % (42.0-52.0) L 12/25/17 11:45 MCV 79.7 fL (78.0-98.0) 12/25/17 11:45 Plt Count 144 thou/uL (130-400) 12/25/17 11:45 Neutrophils % 58.9 % (42.0-75.0) 12/25/17 11:45 ABG pH 7.38 (7.35-7.45) 12/25/17 12:32 ABG pCO2 37.9 mmHg (35.0-45.0) 12/25/17 12:32 ABG pO2 86.0 mmHg (> 60.0) H 12/25/17 12:32 Sodium 133 mmol/L (136-145) L 12/25/17 11:45 Potassium 3.9 mmol/L (3.5-5.1) 12/25/17 11:45 Chloride 102 mmol/L (98-107) 12/25/17 11:45 Carbon Dioxide 23 mmol/L (23-31) 12/25/17 11:45 BUN 17 mg/dL (8.4-25.7) 12/25/17 11:45 Creatinine 1.51 mg/dL (0.6-1.3) H 12/25/17 11:45 Glucose 115 mg/dL (83-110) H 12/25/17 11:45 Calcium 8.6 mg/dL (7.8-10.44) 12/25/17 11:45 Total Bilirubin 1.0 mg/dL (0.2-1.2) 12/25/17 11:45 AST 15 U/L (5-34) 12/25/17 11:45 ALT 10 U/L (8-55) 12/25/17 11:45 Alkaline Phosphatase 70 U/L (40-150) 12/25/17 11:45 CK-MB (CK-2) 2.7 ng/mL (0-6.6) 12/25/17 11:45 B-Natriuretic Peptide 458.8 pg/mL (0-100) H 12/25/17 11:45 Serum Total Protein 5.9 g/dL (5.8-8.1) 12/25/17 11:45 Albumin 3.6 g/dL (3.4-4.8) 12/25/17 11:45 - EKG Interpretation EKG: Sinus jana, SD 282, QT 578, Rate 40, No ST or T wave changes - Radiology Interpretation Chest x-ray Status: image reviewed by me, report reviewed by me (Mild pulm vascular congestion, cardiomegally) CT scan - head Status: image reviewed by me, report reviewed by me (No acute process) Additional comment: 2nd scan taken after pt fell in room, this is pending FMR H&P: A/P - Problem List (1) Bradycardia Current Visit: Yes Status: Acute Code(s): R00.1 - BRADYCARDIA, UNSPECIFIED (2) Toxic encephalopathy Current Visit: Yes Status: Acute Code(s): G92 - TOXIC ENCEPHALOPATHY (3) Beta temo toxicity Current Visit: Yes Status: Suspected Code(s): [id number] - (4) Hypotension Current Visit: Yes Status: Acute (5) Essential hypertension Current Visit: Yes Status: Chronic Code(s): I10 - ESSENTIAL (PRIMARY) HYPERTENSION (6) MDD (major depressive disorder) Current Visit: Yes Status: Chronic Code(s): F32.9 - MAJOR DEPRESSIVE DISORDER, SINGLE EPISODE, UNSPECIFIED (7) CAD (coronary artery disease) Current Visit: Yes Status: Chronic Code(s): I25.10 - ATHSCL HEART DISEASE OF [place] CORONARY ARTERY W/O ANG PCTRS (8) History of CVA (cerebrovascular accident) Current Visit: Yes Status: Chronic Code(s): Z86.73 - PRSNL HX OF TIA (TIA), AND CEREB INFRC W/O RESID DEFICITS (9) Alzheimer's dementia Current Visit: No Status: Chronic Code(s): G30.9 - ALZHEIMER'S DISEASE, UNSPECIFIED (10) BPH (benign prostatic hyperplasia) Current Visit: No Status: Chronic Code(s): N40.0 - BENIGN PROSTATIC HYPERPLASIA WITHOUT LOWER URINRY TRACT SYMP (11) Chronic anticoagulation Current Visit: No Status: Chronic Code(s): Z79.01 - [employer] (CURRENT) USE OF ANTICOAGULANTS (12) H/O mechanical aortic valve replacement Current Visit: No Status: Chronic Code(s): Z95.2 - PRESENCE OF PROSTHETIC HEART VALVE (13) Osteoporosis Current Visit: No Status: Chronic Code(s): M81.0 - AGE-RELATED OSTEOPOROSIS W/O CURRENT PATHOLOGICAL FRACTURE (14) Seizure disorder Current Visit: No Status: Chronic Code(s): G40.909 - EPILEPSY, UNSP, NOT INTRACTABLE, WITHOUT STATUS EPILEPTICUS (15) Hypothyroid Current Visit: Yes Status: Acute Code(s): E03.9 - HYPOTHYROIDISM, UNSPECIFIED (16) JANKI (acute kidney injury) Current Visit: Yes Status: Acute Code(s): N17.9 - ACUTE KIDNEY FAILURE, UNSPECIFIED (17) Normocytic anemia Current Visit: Yes Status: Acute Code(s): D64.9 - ANEMIA, UNSPECIFIED - Plan Symptomatic bradycardia - Most likely related to accidental beta temo overdose given acute onset following taking meds. TSH is elevated, however given acute nature of decompensation this is unlikely to be the cause. Will consider starting synthroid as well. - monitor on in IMCU, currently stable HR and BP - Will give glucagon if needed - Cardiology is consulted - Echo pending Toxic encephalopathy - suspected secondary to accidental beta temo overdose. Plan as above - NPO until cleared by speech JANKI - Likely due to hypoperfusion. This is likely to improve with stabilization of BP - Recheck BMP in am - Continue IVF Hypothyroid - new dx. Consider starting synthroid as above Essential HTN - restart home meds with the exception of beta blockers when BP recovers Dementia - baseline confused, however conversational. Seizure disorder NOS - continue home keppra BPH - continue home flomax CAD - continue home ranexa Prosthetic valve - continue warfarin Osteoporosis - home meds Normocytic anemia - Chronic and at baseline MDD continue home meds PPx - lovenox Diet NPO Code DNR Dispo: Guarded. Pt is currently stable, however given age and comorbidities it is very possible that he could decompensate. LOS greater than 48 hours FMR H&P: Upper Level - Plan Date/Time: 12/25/17 [id number] I, [], have evaluated this patient and agree with findings/plan as outlined by summer internship resident. Pertinent changes/additions are listed here. Attending Addendum - Attending Addendum Date/Time: 12/26/17 1195. Please note seen and examined in ED on 12/25. I personally evaluated the patient and discussed the management with Dr. Garcia. I agree with and repeated the History, Examination, Assessment and Plan documented above with any addition or exceptions noted below. Pt c/o left leg pain at time of evaluation. Otherwise no complaint. Alert and O x 1 for me. RRR, no longer jana, murmur as mentioned, no edema CTAB s w/r/r or inc wob BS+, NTTP palpably contracted muscle LLE, intermittent labs and imaging reviewed. Agree with plan. Consult cardiology. Patient is DNR. After very brief discussion with patient and his daughter he seems to have voiced that he desires no cardiac procedures in the future.
--- NOTE | 2017-12-25 18:40 | CT ---
HEAD CT WITHOUT CONTRAST: Date: 12/25/17 COMPARISON: 12/25/17 at 1151 hours. 04/11/16. FINDINGS: No parenchymal hemorrhage or extra-axial hematoma. No midline shift. Basilar cisterns are patent. Age -appropriate atrophy. Cortical clements-white matter differentiation is preserved. Ventricles and sulci a re patent and symmetric. Stable hypodensities in the white matter. Adequate aeration of the sinuses a nd mastoid air cells. Cavernous carotid atherosclerosis is noted. Stable appearance of the calvarium. There is lucency throughout the calvarium, nonspecific. Lucency is similar to examination from March 2016. IMPRESSION: No acute intracranial process. POS: [facility]
--- NOTE | 2017-12-25 19:05 | CT ---
CT CERVICAL SPINE 12/25/17 COMPARISON: 03/15/17 HISTORY: Fall. Pain. TECHNIQUE: CT cervical spine is performed without contrast. Reformatted images are submitted for interpretation. FINDINGS: No craniocervical dissociation. Intact odontoid process. Appropriate alignment of the lateral masses of C1 and C2 as well as the facets. Stable degenerative changes of the cervical spine with loss of disc space height and osteophyte forma tion. There is no prevertebral soft tissue swelling. There are varying degrees of central canal steno sis and foraminal narrowing on the basis of degenerative change. Upper mediastinum and lung apices ar e unremarkable. Cervical spine vertebral body height is maintained. There is no evidence of fracture. IMPRESSION: 1. No cervical spine fracture. 2. Additional chronic changes as described above. POS: [facility]
[2017-12-25] MEDS: tiZANidine HCl 4 MG TAB PO SCH (20:11)
[2017-12-26] MEDS ORDERED: Tamsulosin HCl 0.4 MG CAP PO SCH (02:45)
[2017-12-26 03:51] LABS: #Basophils 0.1 thou/uL (0.0-0.2); #Eosinphils 0.1 thou/uL (0.0-0.7); #Lymphocytes 1.7 thou/uL (1.20-3.40); #Monocytes 1.1 thou/uL (0.11-0.59); #Neutrophils 4.7 thou/uL (1.40-6.50); %Basophils 0.8 % (0.0-1.0); %Eosinophils 0.8 % (0.0-10.0); %Lymphocytes 21.8 % (21.0-51.0); %Monocytes 14.3 % (0.0-10.0); %Neutrophils 62.2 % (42.0-75.0); Hemoglobin 11.4 g/dL (14.0-18.0); Mean Corpuscular HGB CONC 33.6 g/dL (32.0-36.0); Mean Corpuscular Hemoglobin 27.3 pg (27.0-31.0); Mean Platelet Volume 11.3 fL (7.4-10.4); Platelet Count 129 thou/uL (130-400); RBC Distribution Width 16.3 % (11.5-14.5); Red Blood Cell (RBC) Count 4.16 mill/uL (4.70-6.10); White Blood Cell (WBC) Count 7.6 thou/uL (4.8-10.8)
[2017-12-26 04:06] LABS: Anion Gap 11 mmol/L (10-20); BUN (Urea Nitrogen) 19 mg/dL (8.4-25.7); Calc. Creatinine Clearance 57 mL/min (70-130); Calcium 8.6 mg/dL (7.8-10.44); Carbon Dioxide 22 mmol/L (23-31); Chloride 103 mmol/L (98-107); Estimated GFR-MDRD 53; Glucose 93 mg/dL (83-110); Potassium 3.9 mmol/L (3.5-5.1); Sodium 132 mmol/L (136-145)
--- NOTE | 2017-12-26 05:41 | PDOC.FM ---
- Subjective Subjective: No overnight events. A&O to person, month only. Reported year 1980. Denies pain , dizziness, lightheadedness. Reports Left sided numbness in leg. No questions or complaints. - Objective MAR Reviewed: Yes Vital Signs & Weight: Vital Signs (12 hours) Temp Pulse Resp BP Pulse Ox 12/26/17 04:00 97.4 F L 57 L 20 157/74 H 100 12/26/17 00:00 97.1 F L 54 L 18 127/66 100 12/25/17 20:00 98.3 F 66 20 132/77 99 Weight Weight 89.811 kg I&O: 12/24/17 12/25/17 12/26/17 06:59 06:59 06:59 Intake Total 60 Balance 60 Result Diagrams: 12/26/17 03:32 12/26/17 03:32 Phys Exam - Physical Examination Constitutional: NAD Neck: supple Respiratory: no wheezing, clear to auscultation bilateral irregularly irregular rhythm Gastrointestinal: soft, non-tender, positive bowel sounds Epigastric pain on palpation Musculoskeletal: no edema, pulses present Neurological: moves all 4 limbs left leg decreased sensation, 5/5 UE & LE strength. CN2-12 intact Psychiatric: normal affect Deviation from normal: A&O to person and month only Skin: cap refill <2 seconds Dx/Plan (1) JANKI (acute kidney injury) Code(s): N17.9 - ACUTE KIDNEY FAILURE, UNSPECIFIED Status: Acute (2) Bradycardia Code(s): R00.1 - BRADYCARDIA, UNSPECIFIED Status: Acute (3) Hypotension Status: Acute (4) Hypothyroid Code(s): E03.9 - HYPOTHYROIDISM, UNSPECIFIED Status: Acute (5) Normocytic anemia Code(s): D64.9 - ANEMIA, UNSPECIFIED Status: Acute (6) Toxic encephalopathy Code(s): G92 - TOXIC ENCEPHALOPATHY Status: Acute (7) CAD (coronary artery disease) Code(s): I25.10 - ATHSCL HEART DISEASE OF [place] CORONARY ARTERY W/O ANG PCTRS Status: Chronic (8) Essential hypertension Code(s): I10 - ESSENTIAL (PRIMARY) HYPERTENSION Status: Chronic (9) History of CVA (cerebrovascular accident) Code(s): Z86.73 - PRSNL HX OF TIA (TIA), AND CEREB INFRC W/O RESID DEFICITS Status: Chronic (10) MDD (major depressive disorder) Code(s): F32.9 - MAJOR DEPRESSIVE DISORDER, SINGLE EPISODE, UNSPECIFIED Status : Chronic (11) Seizure disorder Code(s): G40.909 - EPILEPSY, UNSP, NOT INTRACTABLE, WITHOUT STATUS EPILEPTICUS Status: Chronic - Plan Plan: Symptomatic bradycardia - likely related to accidental BB overdose. - TSH elevated, unlikely to be the cause given acute nature of decompensation - Will give glucagon if needed - Cardiology consulted - Echo pending Irregularly irregular rhythm on exam - Will obtain EKG to further eval - No known hx of afib Toxic encephalopathy - suspected 2/2 to accidental BB overdose - Continue to monitor Hypothyroid - Elevated TSH 5.63 - New dx - Consider starting synthroid JANKI, resolved - Likely due to hypoperfusion - Continue IVF Essential HTN - Continue home meds - Hold beta blockers Dementia - Baseline confused, however conversational. - Continue home meds Seizure disorder - Continue home keppra BPH - Continue home flomax CAD - Continue home ranexa Prosthetic valve - Continue warfarin Osteoporosis - home meds Chronic normocytic anemia - At baseline Depression - Continue home meds Code Status: DNR DVT ppx: lovenox
[2017-12-26] MEDS ORDERED: cloNIDine 0.1 MG TAB PO PRN (06:30)
[2017-12-26] MEDS ORDERED: Polyethylene Glycol 3350 17 GM Packet PO PRN (06:30)
[2017-12-26] MEDS ORDERED: Prevnar 13-Val Conj/PF 0.5 ML SYRINGE IM ONE (09:00)
[2017-12-26] MEDS: pyridOXINE 50 MG (B6) TAB PO SCH (10:06)
[2017-12-26] MEDS: Chlorthalidone 25 MG TAB PO SCH (10:06)
[2017-12-26] MEDS: DULoxetine 30 MG CAP PO SCH (10:06)
[2017-12-26] MEDS: tiZANidine HCl 4 MG TAB PO SCH ×2 (10:07→20:26)
[2017-12-26] MEDS: levETIRAcetam 500 MG TAB PO SCH ×2 (10:07→20:27)
[2017-12-26] MEDS: Losartan 25 MG TAB PO SCH (10:08)
[2017-12-26] MEDS: Tamsulosin HCl 0.4 MG CAP PO SCH (10:08)
[2017-12-26] MEDS: Enoxaparin Sodium 40 MG/0.4 ML SYRINGE SC SCH (10:09)
[2017-12-26] MEDS: Rivastigmine 9.5mg/24 Hour PATCH TOP SCH (10:09)
--- NOTE | 2017-12-26 14:23 | PDOC.CTH ---
Cardiology Progress Note - Subjective Pt more alert today. No complaints. HR in the 60's on 5mics of dobutrex. - Objective Vital Signs Temp Pulse Resp BP Pulse Ox 12/26/17 12:00 97.4 F L 79 27 H 120/45 L 100 12/26/17 08:00 100 12/26/17 07:35 97.6 F 62 12 125/93 H 100 12/26/17 04:00 97.4 F L 57 L 20 157/74 H 100 Weight 200 lb 3.2 oz 12/25/17 12/26/17 12/27/17 06:59 06:59 06:59 Intake Total 1036 Output Total 700 Balance 336 - Physical Examination General/Neuro: NAD Neck: no JVD present Lungs: CTA, unlabored respirations Heart: PMI normal, RRR Abdomen: NT/ND, soft Extremities: + femoral B - Labs Result Diagrams: 12/26/17 03:32 12/26/17 03:32 Troponin/CKMB CK-MB (CK-2) 2.7 ng/mL (0-6.6) 12/25/17 11:45 Troponin I Less than 0.010 ng/mL (< 0.028) 12/25/17 11:45 - Assessment/Plan Bradycardia CAD s/p CABG Dementia CV status stable Stop dobutrex No BB If HR better overnight, ok for dc from cv standpoint
[2017-12-26] MEDS ORDERED: Ondansetron ODT 8 MG TAB SL PRN (14:59)
[2017-12-26] MEDS: Ondansetron ODT 4 MG TAB SL PRN (15:21)
[2017-12-26] MEDS ORDERED: Warfarin Sodium 2.5 MG TAB PO SCH (17:00)
--- NOTE | 2017-12-27 02:43 | CON ---
DATE OF CONSULTATION: 12/26/2017 HISTORY OF PRESENT ILLNESS: Mr. Garcia is an 82-year-old male. He is very pleasant. When I evaluated him during the lunch hour, his only complaint was nausea. He presented with bradycardia and fatigue and weakness. He was not bradycardic when I evaluated him. He has been seen by Dr. Sr. He is a poor historian. He appears to be stable and really would only say that he felt nauseated. PAST MEDICAL HISTORY: 1. Remarkable for coronary artery disease. 2. History of bypass surgery. 3. History of valve replacement. 4. History of myocardial infarction. 5. History of cholecystectomy. 6. History of dementia. 7. History of hypertension. REPORTED ALLERGIES: To TETANUS, MORPHINE, and PENICILLIN. SOCIAL HISTORY: Non-smoker, nondrinker. MEDICATIONS: Prior to admission he was on Ranexa, losartan, Exelon, Cymbalta, Coumadin, Coreg, aspir in, clonidine, tamsulosin, lisinopril, Keppra, and Flonase. REVIEW OF SYSTEMS: Ten points not accurately obtainable. PHYSICAL EXAMINATION: GENERAL: Very pleasant gentleman in no distress. VITAL SIGNS: Afebrile, heart rates in the 60s-70s. Respiratory rates in the teens. Oximetry is 100 % on room air. Blood pressure 136/57. HEENT: Pupils are equal. Sclerae are anicteric. NECK: Supple. No lymphadenopathy. LUNGS: Clear. HEART: Regular rhythm. ABDOMEN: Soft and nontender. He said he had a bowel movement earlier today. EXTREMITIES: Without clubbing, cyanosis, or edema. NEUROLOGIC: Grossly nonfocal. He is oriented to person and place. LABORATORY DATA: White count 7.6, hemoglobin 11.4, platelets 129. Sodium 132, potassium 3.9, chlori de 103, bicarbonate 22, BUN 19, creatinine 1.29. IMPRESSION: 1. Nausea of unclear etiology, Zofran ODT tablets were ordered. 2. Cardiomyopathy. 3. History of coronary artery bypass grafting. 4. Bradycardia aggravated by his medications. 5. Dementia. PLAN: Continue supportive care. happy to follow with lozenge dough mixer and the primary care doctor is marianela ing care of him.
[2017-12-27 04:05] LABS: INR-International Normal Ratio 1.5; Prothrombin Time 18.6 SEC (12.0-14.7)
--- NOTE | 2017-12-27 05:34 | PDOC.CTH ---
Cardiology Progress Note - Objective Vital Signs Temp Pulse Resp BP Pulse Ox 12/27/17 04:00 97.4 F L 55 L 17 102/45 L 100 12/27/17 00:00 97.8 F 56 L 20 91/39 L 95 12/26/17 20:00 100 12/26/17 19:48 97.9 F 61 18 136/57 L 100 Weight 200 lb 3.2 oz 12/25/17 12/26/17 12/27/17 06:59 06:59 06:59 Intake Total 1036 Output Total 700 Balance 336 - Labs Result Diagrams: 12/26/17 03:32 12/26/17 03:32 Troponin/CKMB CK-MB (CK-2) 2.7 ng/mL (0-6.6) 12/25/17 11:45 Troponin I Less than 0.010 ng/mL (< 0.028) 12/25/17 11:45 - Assessment/Plan Bradycardia CAD s/p CABG Dementia
--- NOTE | 2017-12-27 06:00 | PDOC.FM ---
- Subjective Subjective: Reports feeling good this morning. No complaints. Denies shortness of breath, dizziness, lightheadedness. A&O to person only. - Objective MAR Reviewed: Yes Vital Signs & Weight: Vital Signs (12 hours) Temp Pulse Resp BP Pulse Ox 12/27/17 04:00 97.4 F L 55 L 17 102/45 L 100 12/27/17 00:00 97.8 F 56 L 20 91/39 L 95 12/26/17 20:00 100 12/26/17 19:48 97.9 F 61 18 136/57 L 100 Weight Weight 90.582 kg I&O: 12/25/17 12/26/17 12/27/17 06:59 06:59 06:59 Intake Total 1036 Output Total 700 Balance 336 Result Diagrams: 12/26/17 03:32 12/26/17 03:32 Phys Exam - Physical Examination Constitutional: NAD sitting on edge of bed eating breakfast Neck: supple Respiratory: no wheezing, clear to auscultation bilateral Cardiovascular: RRR Gastrointestinal: soft, non-tender, positive bowel sounds Musculoskeletal: no edema, pulses present Psychiatric: normal affect, A&O x 3 Skin: cap refill <2 seconds Dx/Plan (1) JANKI (acute kidney injury) Code(s): N17.9 - ACUTE KIDNEY FAILURE, UNSPECIFIED Status: Acute (2) Bradycardia Code(s): R00.1 - BRADYCARDIA, UNSPECIFIED Status: Acute (3) Hypotension Status: Acute (4) Hypothyroid Code(s): E03.9 - HYPOTHYROIDISM, UNSPECIFIED Status: Acute (5) Normocytic anemia Code(s): D64.9 - ANEMIA, UNSPECIFIED Status: Acute (6) Toxic encephalopathy Code(s): G92 - TOXIC ENCEPHALOPATHY Status: Acute (7) CAD (coronary artery disease) Code(s): I25.10 - ATHSCL HEART DISEASE OF [place] CORONARY ARTERY W/O ANG PCTRS Status: Chronic (8) Essential hypertension Code(s): I10 - ESSENTIAL (PRIMARY) HYPERTENSION Status: Chronic (9) History of CVA (cerebrovascular accident) Code(s): Z86.73 - PRSNL HX OF TIA (TIA), AND CEREB INFRC W/O RESID DEFICITS Status: Chronic (10) MDD (major depressive disorder) Code(s): F32.9 - MAJOR DEPRESSIVE DISORDER, SINGLE EPISODE, UNSPECIFIED Status : Chronic (11) Seizure disorder Code(s): G40.909 - EPILEPSY, UNSP, NOT INTRACTABLE, WITHOUT STATUS EPILEPTICUS Status: Chronic - Plan Plan: Symptomatic bradycardia - likely related to accidental BB overdose. - TSH elevated, unlikely to be the cause given acute nature of decompensation - Will give glucagon if needed - Cardiology consulted - Echo pending Toxic encephalopathy, resolved - suspected 2/2 to accidental BB overdose - Continue to monitor Hypothyroid - Elevated TSH 5.63 - New dx - Consider starting synthroid outpt JANKI, resolved - Likely due to hypoperfusion - Continue IVF Essential HTN - Continue home meds - Hold beta blockers Dementia - Baseline confused, however conversational. - Continue home meds Seizure disorder - Continue home keppra BPH - Continue home flomax CAD - Continue home ranexa Prosthetic valve - Continue warfarin - Low Vit K diet Osteoporosis - home meds Chronic normocytic anemia - At baseline Depression - Continue home meds Code Status: DNR DVT ppx: lovenox Dispo: today
[2017-12-27] MEDS: Enoxaparin Sodium 40 MG/0.4 ML SYRINGE SC SCH (08:52)
[2017-12-27] MEDS: Losartan 25 MG TAB PO SCH (08:53)
[2017-12-27] MEDS: levETIRAcetam 500 MG TAB PO SCH (08:53)
[2017-12-27] MEDS: pyridOXINE 50 MG (B6) TAB PO SCH (08:54)
[2017-12-27] MEDS: Chlorthalidone 25 MG TAB PO SCH (08:55)
[2017-12-27] MEDS: DULoxetine 30 MG CAP PO SCH (08:55)
[2017-12-27] MEDS: tiZANidine HCl 4 MG TAB PO SCH (08:55)
[2017-12-27] MEDS: Tamsulosin HCl 0.4 MG CAP PO SCH (08:55)
[2017-12-27] MEDS: Rivastigmine 9.5mg/24 Hour PATCH TOP SCH (08:56)
[2017-12-27 11:00] VITALS: BP 95/46; TEMP 97.9
--- NOTE | 2017-12-27 11:02 | PRG ---
DATE OF SERVICE: 12/27/2017 This is an addendum to the note of Dr. Yanelis Austin. Mr. Garcia has had stable vital signs now for the last 24 hours. His pulse rate is now 51. His te lemetry has not revealed any further bradyarrhythmias. He is ready for discharge back to his [facility]. CBC: White count is 7600, hemoglobin is 11.4, hematocrit is 33.7. His chemistries show a sodium 132 , potassium 3.9, chloride 103, bicarbonate of 22, BUN 19, creatinine 1.29. He did have a very slightly elevated TSH on admission of 5.63. His free T4 was 0.94. I would not tr eat this, but would recheck it in 3 months.
--- NOTE | 2017-12-27 11:03 | PRG ---
DATE OF SERVICE: 12/27/2017 SUBJECTIVE: Mr. Garcia is in no distress this morning. He denied nausea. Denied shortness of breath. OBJECTIVE: VITAL SIGNS: He is afebrile, heart rates in the 50s-60s, blood pressure 102/45, oximetry is 95%-100% . Intake and output were positive 336. LUNGS: Clear. CARDIOVASCULAR: Regular rhythm. ABDOMEN: Soft. IMPRESSION: Bradycardia with cardiomyopathy, clinically stable. He can move out of the Intermediate Care Unit.
[2017-12-27] MEDS: Ondansetron ODT 4 MG TAB SL PRN (12:29)
--- NOTE | 2017-12-27 13:05 | DIS-2 ---
DATE OF ADMISSION: 12/25/2017 DATE OF DISCHARGE: 12/27/2017 RESIDENT: Dr. Yanelis Austin, PGY1. ADMITTING ATTENDING: Eldon Penaloza M.D. DISCHARGE ATTENDING: Eldon Penaloza M.D. CONSULTATIONS: Cardiology and Pulmonology. PROCEDURES: 1. Chest x-ray showing cardiomegaly and mild pulmonary venous congestion. 2. Brain CT: No CT evidence of acute intracranial process. 3. Brain CT: No acute intracranial process. 4. Cervical spine CT, no cervical spine fracture. Additional chronic changes. PRIMARY DIAGNOSES: 1. Symptomatic bradycardia. 2. Toxic encephalopathy, resolved. SECONDARY DIAGNOSES: 1. Hypothyroidism. 2. Acute kidney injury, resolved. 3. Essential hypertension. 4. Dementia. 5. Seizure disorder. 6. Benign prostatic hypertrophy. 7. Coronary artery disease. 8. Prosthetic valve. 9. Osteoporosis. 10. Chronic normocytic anemia. 11. Depression. DISCHARGE MEDICATIONS: 1. Aspirin 81 mg daily. 2. Chlorthalidone 25 mg daily. 3. Clonidine 0.1 mg b.i.d. 4. Duloxetine 30 mg daily. 5. Keppra 500 mg b.i.d. 6. Losartan 100 mg daily. 7. MiraLax 17 grams p.r.n. 8. Vitamin B6 100 mg daily. 9. Ranexa 1000 mg b.i.d. 10. Exelon patch 9.5 mg daily. 11. Flomax 0.4 mg daily. 12. Coumadin 2.5 mg daily. 13. Tylenol #3 650 mg q.6 hours p.r.n. 14. Alendronate 10 mg daily. DISCONTINUED MEDICATIONS: Coreg. HISTORY OF PRESENT ILLNESS AND HOSPITAL COURSE: Mr. Garcia is an 82-year-old male who presents fro [facility] found with altered mental status after receiving medication. It was concluded that he received multiple doses of his Coreg and was found to be bradycardic in the 30s. He was treated with multiple doses of atropine and had recovery of heart rate to 50s to 60s an d it continued to improve as his medication wore off. Cardiology was consulted and felt that no furt her intervention was necessary as the heart rate improved. This medication metabolized out of the [facility] system. Echo was done that has not resulted, that will need to be followed up on the results . His toxic encephalopathy resolved after the medication metabolized. He was noted to have an acute kidney injury likely due to hypoperfusion from bradycardia. This resol xiomara with IV fluids and his heart rate returning back to normal baseline. His chronic conditions of h ypothyroidism, hypertension, dementia, seizure disorder, BPH, CAD, osteoporosis, depression were delfin carlos manuel with home medications and were stable throughout his hospital stay. He has a prosthetic valve th at he is anticoagulated with warfarin for. His INR was found to be subtherapeutic at 1.5. This will need to be followed up with his primary care physician and may need to be increased to receive thera peutic levels. DISPOSITION: Stable. DISCHARGE INSTRUCTIONS: 1. Location: [facility] in [place], a [facility]. 2. Diet: Heart healthy. 3. Activity: No restrictions. 4. Followup: Follow up with PCP within 3 days.
[2017-12-27] MEDS ORDERED: Acetaminophen 325 MG TAB PO SCH (13:30)
--- NOTE | 2017-12-28 17:29 | EKG ---
Test Reason : Blood Pressure : / mmHG Vent. Rate : 091 BPM Atrial Rate : 091 BPM P-R Int : 222 ms QRS Dur : 140 ms QT Int : 364 ms P-R-T Axes : 071 -15 135 degrees QTc Int : 447 ms Sinus rhythm with sinus arrhythmia with 1st degree A-V block with Premature ventricular complexes or Fusion complexes Left bundle branch block Abnormal ECG Confirmed by NAHUM GRAVES, ALEXI Orr ([id number]), editor managing newspaper ANDREE RAMIREZ ([id number]) on 12/28/2017 5:28:31 PM Referred By: Confirmed By:ALEXI SIDHU MD
--- NOTE | 2017-12-29 20:51 | EKG ---
Test Reason : Blood Pressure : / mmHG Vent. Rate : 053 BPM Atrial Rate : 053 BPM P-R Int : 250 ms QRS Dur : 104 ms QT Int : 500 ms P-R-T Axes : 068 022 118 degrees QTc Int : 469 ms Sinus bradycardia with 1st degree A-V block with frequent Premature ventricular complexes Anterior infarct (cited on or before 15-MAR-2017) Abnormal ECG When compared with ECG of 15-MAR-2017 07:44, (Unconfirmed) Premature ventricular complexes are now Present Confirmed by Dee Dee FAM ([id number]) on 12/29/2017 8:51:08 PM Referred By: HARDEEP MeyerR Confirmed By:Dee Dee FAM
== END 2017-12-27 15:04 | DRG 917 ==
LOC: ERS 10:47 → ERHOLD 12:48 → IMCU/EMU 16:23
PROVIDERS: ADMIT Family Medicine; ATTEND Family Medicine
DX: T44.7X1A Poisoning by beta-adrenoreceptor antagonists, accidental (unintentional), initial encounter (principal); G92 Toxic encephalopathy; N17.9 Acute kidney failure, unspecified; I42.9 Cardiomyopathy, unspecified; F05 Delirium due to known physiological condition; E03.9 Hypothyroidism, unspecified; I10 Essential (primary) hypertension; G40.909 Epilepsy, unspecified, not intractable, without status epilepticus; N40.0 Benign prostatic hyperplasia without lower urinary tract symptoms; I25.10 Atherosclerotic heart disease of native coronary artery without angina pectoris; Z79.01 Long term (current) use of anticoagulants; Z95.2 Presence of prosthetic heart valve; M81.0 Age-related osteoporosis without current pathological fracture; D64.9 Anemia, unspecified; F32.9 Major depressive disorder, single episode, unspecified; Z79.82 Long term (current) use of aspirin; R00.1 Bradycardia, unspecified; Y92.129 Unspecified place in nursing home as the place of occurrence of the external cause; Z95.1 Presence of aortocoronary bypass graft; I25.2 Old myocardial infarction; Z88.0 Allergy status to penicillin; Z88.8 Allergy status to other drugs, medicaments and biological substances; Z66 Do not resuscitate; G30.9 Alzheimer's disease, unspecified; F02.80 Dementia in other diseases classified elsewhere, unspecified severity, without behavioral disturbance, psychotic disturbance, mood disturbance, and anxiety
CPT/HCPCS: 36415; 70450; 71045; 72125; 80048; 80053; 82553; 82805; 83690; 83735; 83880; 84100; 84439; 84443; 84484; 85025; 85610; 93005; 93010; 93306; 96361; 96374; A4216; G8996-GN-CJ; G8997-GN-CJ; J0461; J1250; J1650; Q0162